=== PATIENT | female | born 1960 | race Hispanic/Latino ===

== ENCOUNTER 2016-07-20 10:08 | Emergency (ER) | payer OTHER, SELFPAY ==
[2016-07-20 10:08] VITALS: BMI 28.8
[2016-07-20 10:22] VITALS: RESP 18; TEMP 97.9
[2016-07-20 10:27] VITALS: O2SAT 99
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
[2016-07-20] MEDS ORDERED: Oxycodone/Acetaminophen 5/325 mg Tab PO STA (10:39)
[2016-07-20 12:10] VITALS: BP 148/75; PULSE 79
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
== END 2016-07-20 12:40 | disposition home or self-care (01) ==
LOC: ED 10:08
DX: S23.41XA Sprain of ribs, initial encounter (principal); W50.0XXA Accidental hit or strike by another person, initial encounter; Y92.811 Bus as the place of occurrence of the external cause